=== PATIENT | male | born 1950 | race Caucasian/White ===

== ENCOUNTER 2020-04-28 21:10 | Emergency (ER) | payer OTHER ==
[2020-04-28 21:32] VITALS: BP 141/71; PULSE 72
[2020-04-28 22:34] LABS: CHLORIDE,CL 96 mmol/L (98-107); SODIUM,NA 135 mmol/L (136-145)
--- NOTE | 2020-04-28 22:57 | EDM.PDOC ---
ED HPI GENERAL MEDICAL PROBLEM - General Chief Complaint: Back Pain or Injury Stated Complaint: Shoulder blade pain Time Seen by Provider: 04/28/20 21:20 Source of Information: Reports: Patient History Limitations: Reports: No Limitations - History of Present Illness INITIAL COMMENTS - FREE TEXT/NARRATIVE: Pt with pain in left shoulder and uper back No trauma Intermittent over several weeks Worse when moves shoulder No cough No fever No redness No swelling Onset: Gradual Duration: Week(s):, Intermittent Location: Reports: Upper Extremity, Left Quality: Reports: Ache Improves with: Reports: Immobilization Worsens with: Reports: Movement Left Shoulder Pain Score (Numeric/FACES): 2 - Related Data Allergies Allergy/AdvReac Type Severity Reaction Status Date / Time No Known Allergies Allergy Verified 10/16/15 22:28 Home Meds: Home Meds Aspirin 325 mg PO DAILY 04/28/20 [History] Metoprolol Tartrate [Lopressor] 25 mg PO Q12HR 04/28/20 [History] Multivitamin [Multi-Day Vitamins] 1 tab PO DAILY 04/28/20 [History] Rosuvastatin [Crestor] 10 mg PO BEDTIME 04/28/20 [History] hydroCHLOROthiazide [Hydrochlorothiazide] 12.5 mg PO DAILY 04/28/20 [History] Past Medical History Cardiovascular History: Reports: High Cholesterol, Hypertension Respiratory History: Reports: COPD, Sleep Apnea Musculoskeletal History: Reports: Fracture Psychiatric History: Reports: Addiction, Anxiety, Depression, PTSD - Infectious Disease History Infectious Disease History: Reports: Chicken Pox - Past Surgical History HEENT Surgical History: Reports: Oral Surgery, Tonsillectomy Cardiovascular Surgical History: Reports: Coronary Artery Bypass GI Surgical History: Reports: Colonoscopy Social & Family History - Tobacco Use Smoking Status *Q: Current Every Day Smoker Years of Tobacco use: 50 Packs/Tins Daily: 1 - Alcohol Use Days Per Week of Alcohol Use: 7 Number of Drinks Per Day: 5 Total Drinks Per Week: 35 - Recreational Drug Use Recreational Drug Use: Yes Recreational Drug Type: Reports: Marijuana/Hashish Recreational Drug Use Frequency: Not Used In Over 6 Months ED ROS GENERAL - Review of Systems Review Of Systems: See Below HEENT: Reports: No Symptoms Respiratory: Reports: No Symptoms Cardiovascular: Reports: No Symptoms GI/Abdominal: Reports: No Symptoms Musculoskeletal: Reports: Shoulder Pain ED EXAM, UPPER BACK/NECK PAIN - Physical Exam Exam: See Below Exam Limited By: No Limitations Neck Exam: Normal Inspection Cardiovascular/Respiratory: Regular Rate, Rhythm, Normal Breath Sounds GI/Abdominal: Soft, Non-Tender Extremities: Normal Range of Motion Neurologic: No Motor/Sensory Deficits Course - Vital Signs Last Recorded V/S: Last Vital Signs Temp 97.4 F 04/28/20 21:31 Pulse 72 04/28/20 21:31 Resp 14 04/28/20 21:31 BP 141/71 H 04/28/20 21:31 Pulse Ox 96 04/28/20 21:31 - Orders/Labs/Meds Orders: Active Orders 24 hr Category Date Time Status EKG Documentation Completion [RC] ASDIRECTED Care 04/28/20 21:42 Active Shoulder Comp Lt [CR] Stat Exams 04/28/20 21:35 Taken Labs: Laboratory Tests 04/28/20 04/28/20 Range/Units 22:14 22:14 WBC 6.9 (4.0-10.2) K/uL RBC 3.41 L (4.33-5.41) M/uL Hgb 12.7 L (13.1-16.8) g/dL Hct 37.1 L (39.0-49.0) % MCV 108.8 H (84.0-98.0) fL MCH 37.2 H (28.2-33.3) pg MCHC 34.2 (31.7-36.0) g/dL RDW 12.8 (11.2-14.1) % Plt Count 164 (150-350) K/uL Neut % (Auto) 56.1 (45.0-80.0) % Lymph % (Auto) 21.5 (10.0-50.0) % [place] % (Auto) 10.9 (2.0-14.0) % Eos % (Auto) 10.8 H (0.0-5.0) % Baso % (Auto) 0.7 (0.0-2.0) % Neut # (Auto) 3.85 (1.40-7.00) K/uL Lymph # (Auto) 1.48 (0.50-3.50) K/uL [place] # (Auto) 0.75 (0.00-1.00) K/uL Eos # (Auto) 0.74 H (0.00-0.50) K/uL Baso # (Auto) 0.05 (0.00-0.20) K/uL Sodium 135 L (136-145) mmol/L Potassium 3.0 L (3.5-5.1) mmol/L Chloride 96 L (98-107) mmol/L Carbon Dioxide 30.9 (21.0-32.0) mmol/L BUN 10 (7-18) mg/dL Creatinine 0.93 (0.51-1.17) mg/dL Est Cr Clr Drug Dosing 75.22 mL/min Estimated GFR (MDRD) > 60 mL/min Glucose 94 (74-106) mg/dL Calcium 9.2 (8.5-10.1) mg/dL Total Bilirubin 0.7 (0.2-1.0) mg/dL AST 55 H (15-37) U/L ALT 44 (12-78) U/L Alkaline Phosphatase 98 (46-116) IU/L Troponin I 0.005 (0.000-0.056) ng/mL Total Protein 7.3 (6.4-8.2) g/dL Albumin 3.6 (3.4-5.0) g/dL - Re-Assessments/Exams Free Text/Narrative Re-Assessment/Exam: 04/28/20 22:54 Pt noted to be in Afib on EKG No known hx/o this previously No hx/o chest pain or palpitations but did state he had some kind of episode back in December. See lab Pt stable in ER Pt on ASA and Metoprolol daily Will ahve pt follow up in clinic for referral to cardiology Departure - Departure Time of Disposition: 23:00 Disposition: Home, Self-Care 01 Clinical Impression: Afib Shoulder pain, left Qualifiers: Chronicity: acute Qualified Code(s): M25.512 - Pain in left shoulder - Discharge Information *PRESCRIPTION DRUG MONITORING PROGRAM REVIEWED*: Not Applicable *COPY OF PRESCRIPTION DRUG MONITORING REPORT IN PATIENT ZINA: Not Applicable Instructions: Shoulder Pain, Atrial Fibrillation, [id number] Referrals: PCP,None [Primary Care Provider] - Additional Instructions: Follow up in clinic To ER if worse Sepsis Event Note (ED) - Evaluation Sepsis Screening Result: No Definite Risk - Focused Exam Vital Signs: Vital Signs Temp Pulse Resp BP Pulse Ox 04/28/20 21:31 97.4 F 72 14 141/71 H 96 - My Orders Last 24 Hours: My Active Orders 04/28/20 21:35 Shoulder Comp Lt [CR] Stat 04/28/20 21:42 EKG Documentation Completion [RC] ASDIRECTED - Assessment/Plan Last 24 Hours: My Active Orders 04/28/20 21:35 Shoulder Comp Lt [CR] Stat 04/28/20 21:42 EKG Documentation Completion [RC] ASDIRECTED
== END 2020-04-28 23:10 | disposition home or self-care (01) ==
LOC: LL.ED 21:10
DX: M25.512 Pain in left shoulder (principal); I48.91 Unspecified atrial fibrillation; E78.00 Pure hypercholesterolemia, unspecified; I10 Essential (primary) hypertension; J44.9 Chronic obstructive pulmonary disease, unspecified; F17.210 Nicotine dependence, cigarettes, uncomplicated; Z79.82 Long term (current) use of aspirin; Z79.899 Other long term (current) drug therapy
CPT/HCPCS: 36415; 73030-LT; 80053; 84484; 85025; 93005; 99284-25

== ENCOUNTER 2022-03-06 16:57 | Emergency (ER) | payer MEDICARE, OTHER ==
[2022-03-06] MEDS ORDERED: Albuterol/Ipratropium 3.0-0.5 MG/3 ML Neb Soln ONE (17:44)
[2022-03-06] MEDS ORDERED: Albuterol/Ipratropium 3.0-0.5 MG/3 ML Neb Soln NEB ONE (17:45)
[2022-03-06] MEDS ORDERED: Thiamine 100 MG in Sodium Chloride 0.9% 100 ML IV ONE (17:45)
[2022-03-06 18:41] LABS: CHLORIDE,CL 92 mmol/L (98-107); SODIUM,NA 135 mmol/L (136-145)
[2022-03-06 18:42] LABS: ANION GAP 22.7 meq/L (7-15); ESTIMATED GFR 45 mL/min
[2022-03-06] MEDS ORDERED: Diphtheria,Pertussis(Acell),Tetanus Vaccine 0.5 ML Syringe IM ONE (18:54)
[2022-03-06 20:35] VITALS: BP 122/72; PULSE 76
== END 2022-03-06 20:00 | disposition home or self-care (01) ==
LOC: LL.ED 16:57
DX: S01.81XA Laceration without foreign body of other part of head, initial encounter (principal); J44.9 Chronic obstructive pulmonary disease, unspecified; E78.00 Pure hypercholesterolemia, unspecified; I10 Essential (primary) hypertension; Z79.899 Other long term (current) drug therapy; Z79.82 Long term (current) use of aspirin; Z95.1 Presence of aortocoronary bypass graft; Z72.0 Tobacco use; Z23 Encounter for immunization; W18.30XA Fall on same level, unspecified, initial encounter
CPT/HCPCS: 36415; 70470; 71046; 71101; 72125; 80053; 80307; 83735; 85025; 90471; 90715; 94640; 96365; 99284; J3411; J3490; J7620-GY